=== PATIENT | female | born 2000 | race African-American/Black ===

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

== ENCOUNTER 2019-01-03 11:13 | Emergency (ER) | payer SELFPAY ==
--- NOTE | 2019-01-03 11:29 | ER Document Report ---
ED Medical Screen (RME) - General Chief Complaint: Foot Injury Stated Complaint: FOOT INJURY Time Seen by Provider: 01/03/19 11:27 Primary Care Provider: JENS PALACIOS MD [Primary Care Provider] - Follow up as needed TRAVEL OUTSIDE OF THE [place] IN LAST 30 DAYS: No - HPI Notes: 01/03/19 11:28 Patient is a 18-year-old female who presents complaining of right lateral foot pain status post injury prior to arrival. Patient states that she injured herself on steps. She did not injure any other part of her body. She has no other concerns or complaints. Weightbearing makes the pain worse. Pt declines tylenol/motrin. I have treated and performed a rapid initial assessment of this patient. A comprehensive ED assessment and evaluation of the patient, analysis of test results and completion of medical decision making process will be conducted by additional ED providers. PHYSICAL EXAMINATION: GENERAL: Well-appearing, well-nourished and in no acute distress. Right foot: FROM. + swelling noted lateral prox foot with tenderness associated. No ankle tenderness. achilles intact. N/V intact. - Related Data Allergies/Adverse Reactions: No Known Allergies Allergy (Verified 11/30/16 10:23) Past Medical History Renal/ Medical History: Denies: Hx Peritoneal Dialysis Psychiatric Medical History: Reports: Hx Attention Deficit Hyperactivity Disorder - Immunizations Immunizations up to date: Yes Doctor's Discharge - Discharge Referrals: JENS PALACIOS MD [Primary Care Provider] - Follow up as needed
--- NOTE | 2019-01-03 11:47 | RADIOLOGY REPORT (SQ) ---
EXAM DESCRIPTION: FOOT RIGHT COMPLETE COMPLETED DATE/TIME: 01/03/2019 11:38 am REASON FOR STUDY: Rt lateral prox pain s/p injury COMPARISON: None. NUMBER OF VIEWS: Three views. TECHNIQUE: AP, lateral and oblique radiographic images acquired of the right foot. LIMITATIONS: None. FINDINGS: MINERALIZATION: Normal. BONES: No acute fracture or dislocation. No worrisome bone lesions. JOINTS: No effusions. SOFT TISSUES: No soft tissue swelling. No foreign body. OTHER: No other significant finding. IMPRESSION: NEGATIVE STUDY OF THE RIGHT FOOT. NO RADIOGRAPHIC EVIDENCE OF ACUTE INJURY. TECHNICAL DOCUMENTATION: JOB ID: [id number] [employer]- All Rights Reserved Reading location - IP/workstation name: [email or web address]
--- NOTE | 2019-01-03 12:48 | ER Document Report ---
HPI - HPI Time Seen by Provider: 01/03/19 11:27 Pain Level: 5 Context: Patient is a 18-year-old female who presents to the emergency department with a chief complaint of right foot pain. She was walking down some steps and slipped down the steps. This happened prior to arrival. Patient states that whenever she stands on her foot it hurts. She has not taken any ibuprofen or Tylenol for pain relief. She is able to move her digits with no difficulty. Denies any other pain. - CONSTITUTIONAL Constitutional: DENIES: Fever, Chills - REPRODUCTIVE LMP: 12/26/18 Reproductive: DENIES: : - MUSCULOSKELETAL Musculoskeletal: REPORTS: Extremity pain - Right lateral foot, Swelling - Right lateral foot - DERM Skin Color: Normal Past Medical History - Social History Smoking Status: Never Smoker Chew tobacco use (# tins/day): No Frequency of alcohol use: None Drug Abuse: None Family History: Reviewed & Not Pertinent Patient has suicidal ideation: No Patient has homicidal ideation: No Renal/ Medical History: Denies: Hx Peritoneal Dialysis Psychiatric Medical History: Reports: Hx Attention Deficit Hyperactivity Disorder - Immunizations Immunizations up to date: Yes Vertical Provider Document - CONSTITUTIONAL Agree With Documented VS: Yes Exam Limitations: No Limitations General Appearance: No Apparent Distress - INFECTION CONTROL TRAVEL OUTSIDE OF THE [place] IN LAST 30 DAYS: No - HEENT HEENT: Atraumatic, Normocephalic, PERRLA - NECK Neck: Normal Inspection - RESPIRATORY Respiratory: No Respiratory Distress - CARDIOVASCULAR Cardiovascular: Regular Rate Pulses: Normal: Posterior tibial, Dorsalis pedis - MUSCULOSKELETAL/EXTREMETIES Musculoskeletal/Extremeties: FROM, Tender - Right lateral foot, Edema - Right lateral foot. negative: Eccymosis - NEURO Level of Consciousness: Awake, Alert, Appropriate Motor/Sensory: No Motor Deficit - DERM Integumentary: Warm, Dry, No Rash Course - Re-evaluation Re-evalutation: 01/03/19 12:49 Patient's right foot x-ray is negative for any acute fracture at this time. Dorsalis pedis and posterior tibial pulses 2+. No vascular compromise noted. Patient will be placed in a postop shoe, Lit wrap, and given crutches to help with pain and swelling. I have advised the patient to take ibuprofen 600 mg every 6 hours for pain. She is in agreement with this plan. Follow-up precautions were given. Verbal discharge instructions were given to the patient. They verbalized understanding. They are stable for discharge. Discharge - Discharge Clinical Impression: Right foot pain Condition: Stable Disposition: HOME, SELF-CARE Additional Instructions: You were seen today in the emergency department for right foot pain after falling down stairs. At this time, there is no fracture. You are being placed in Lit wrap, postop boot, and are being given crutches to help with the pain. Make sure you rest, elevate, wear the Lit wrap, and apply ice (20 minutes on, 20 minutes off). Follow-up with your primary care provider in regards to this visit. Take ibuprofen 600 mg and acetaminophen 1000 mg every 6 hours for your pain. Forms: Return to Work Referrals: ALISHA MATTHEW NP [Primary Care Provider] - Follow up in 3-5 days
== END 2019-01-03 13:08 | disposition home or self-care (01) ==
LOC: ER 11:13
DX: M79.671 Pain in right foot (principal); W10.9XXA Fall (on) (from) unspecified stairs and steps, initial encounter
CPT/HCPCS: 99283

== ENCOUNTER 2019-11-29 13:07 | Emergency (ER) | payer SELFPAY ==
[2019-11-29 13:17] VITALS: BP 128/75
[2019-11-29] MEDS ORDERED: IBUPROFEN 600 MG TABLET PO ONE (13:32)
--- NOTE | 2019-11-29 13:58 | RADIOLOGY REPORT (SQ) ---
EXAM DESCRIPTION: WRIST LEFT 3 VIEWS IMAGES COMPLETED DATE/TIME: 11/29/2019 1:47 pm REASON FOR STUDY: wrist pain, no known injury COMPARISON: None. NUMBER OF VIEWS: Three views. TECHNIQUE: AP, lateral, and oblique radiographic images acquired of the left wrist. LIMITATIONS: None. FINDINGS: MINERALIZATION: Normal. BONES: No acute fracture or dislocation. Normal alignment. SOFT TISSUES: No soft tissue swelling. No radiopaque foreign body. IMPRESSION: No radiographic evidence for acute fracture at the left wrist. TECHNICAL DOCUMENTATION: JOB ID: [id number] [employer]- All Rights Reserved Reading location - IP/workstation name: [email or web address]
--- NOTE | 2019-11-29 14:11 | ER Document Report ---
HPI - HPI Time Seen by Provider: 11/29/19 13:29 Pain Level: 3 Notes: Otherwise healthy 19-year-old female presenting to the emergency department with complaints of left wrist pain. Patient reports that she has had pain in her left wrist for quite some time but it has gotten worse over the last few days. She denies any trauma or injury to the area. She reports the pain is worse with range of motion. She denies any fever or chills. - ROS Systems Reviewed and Negative: Yes All other systems reviewed and negative - CONSTITUTIONAL Constitutional: DENIES: Fever, Chills - REPRODUCTIVE LMP: 11/11/19 Reproductive: DENIES: : - MUSCULOSKELETAL Musculoskeletal: REPORTS: Extremity pain Past Medical History - General Information source: Patient - Social History Smoking Status: Never Smoker Chew tobacco use (# tins/day): No Frequency of alcohol use: None Drug Abuse: None Family History: Reviewed & Not Pertinent Patient has homicidal ideation: No Renal/ Medical History: Denies: Hx Peritoneal Dialysis Psychiatric Medical History: Reports: Hx Attention Deficit Hyperactivity Disorder - Immunizations Immunizations up to date: Yes Vertical Provider Document - CONSTITUTIONAL Notes: PHYSICAL EXAMINATION: GENERAL: Well-appearing, well-nourished and in no acute distress. HEAD: Atraumatic, normocephalic. EYES: Pupils equal round extraocular movements intact, conjunctiva are normal. ENT: Nares patent NECK: Normal range of motion LUNGS: No respiratory distress Musculoskeletal: Normal range of motion to left wrist, strong radial pulse, cap refill less than 3 seconds, no swelling, erythema, ecchymosis or deformity noted. No snuffbox tenderness. NEUROLOGICAL: Normal speech, normal gait. PSYCH: Normal mood, normal affect. SKIN: Warm, Dry, normal turgor, no rashes or lesions noted. - INFECTION CONTROL TRAVEL OUTSIDE OF THE [place] IN LAST 30 DAYS: No Course - Re-evaluation Re-evalutation: X-ray was negative for any fracture or dislocation. We will try patient in a co ck-up splint. She was encouraged to follow-up with her primary care provider if her pain persists. - Vital Signs Vital signs: Temp Pulse Resp BP Pulse Ox 98.2 F 76 16 128/75 H 99 11/29/19 13:15 11/29/19 13:15 11/29/19 13:15 11/29/19 13:15 11/29/19 13:15 Procedures - Immobilization Left wrist Pre-Proc Neuro Vasc Exam: Normal Immobilizer type: Cock-up Performed by: PCT Post-Proc Neuro Vasc Exam: Normal Discharge - Discharge Clinical Impression: Left wrist pain Condition: Stable Disposition: HOME, SELF-CARE Additional Instructions: The x-ray today was negative. Please try using the splint that we have provided. Take the ibuprofen as prescribed. If you continue to have pain over the next 1 to 2 weeks, please see your primary care provider to see if they would like you to do physical therapy. Return if any severe worsening to include development of swelling, erythema, red streaking from the area or if you start having a fever. Prescriptions: Ibuprofen [Motrin 800 mg Tablet] 800 mg PO Q8H PRN #30 tab PRN Reason: Forms: Return to Work Referrals: ALISHA MATTHEW NP [Primary Care Provider] - Follow up as needed
== END 2019-11-29 14:15 | disposition home or self-care (01) ==
LOC: ER 13:07
DX: M25.532 Pain in left wrist (principal)
CPT/HCPCS: 99283